=== PATIENT | male | born 1995 | race Two or more races ===

== ENCOUNTER → 2024-11-05 | Outpatient (CLI) | payer MEDICAID ==
[2024-11-05 12:59] LABS: Hematocrit 45.6 % (41.0-53.0); Hemoglobin 15.5 g/dL (13.5-17.5); Mean Corpuscular Hemoglobin 30.6 pg (28.0-32.0); Mean Corpuscular Volume 90.2 fL (80.0-100.0); Nucleated Red Blood Cells % 0.0 %
[2024-11-05 13:12] LABS: Alanine Aminotransferase 28 U/L (7-40); Albumin 4.7 g/dL (3.2-4.8); Anion Gap 7 (5-15); BUN/Creatinine Ratio 11.1 (10.0-20.0); Bilirubin, Total 0.5 mg/dL (0.2-1.0); Blood Urea Nitrogen 10 mg/dL (9-23); Carbon Dioxide 30 mmol/L (20-31); Chloride 104 mmol/L (98-107); Cholesterol 187 mg/dL (< 200); Glucose 91 mg/dL (74-106); Potassium 4.5 mmol/L (3.5-5.1); Sodium 141 mmol/L (136-145); Total Protein 7.3 g/dL (5.7-8.2)
[2024-11-05 13:16] LABS: Alkaline Phosphatase 122 U/L (46-116); Calcium 10.6 mg/dL (8.7-10.4); HDL Cholesterol 35 mg/dL (40-59); Triglycerides 253 mg/dL (< 150)
== END | disposition home or self-care (01) ==
LOC: LAB 12:22
PROVIDERS: ATTEND Internal Medicine
DX: E78.5 Hyperlipidemia, unspecified (principal); E55.9 Vitamin D deficiency, unspecified; Z13.1 Encounter for screening for diabetes mellitus
CPT/HCPCS: 36415; 80053; 80061; 82043; 82306; 83036; 84439; 84443; 85025

== ENCOUNTER 2024-12-30 10:16 | Outpatient (CLI) | payer MEDICAID ==
[2024-12-30 11:03] LABS: Hematocrit 43.7 % (41.0-53.0); Hemoglobin 15.3 g/dL (13.5-17.5); Mean Corpuscular Hemoglobin 31.0 pg (28.0-32.0); Mean Corpuscular Volume 88.8 fL (80.0-100.0); Nucleated Red Blood Cells % 0.1 %
== END 2024-12-30 17:00 | disposition home or self-care (01) ==
LOC: LAB 10:16
PROVIDERS: ATTEND Internal Medicine
DX: B82.9 Intestinal parasitism, unspecified (principal); K59.09 Other constipation
CPT/HCPCS: 36415; 85025; 87177

== ENCOUNTER 2025-01-09 08:01 | Outpatient (CLI) | payer MEDICAID | END 2025-01-09 17:00 | disposition home or self-care (01) | LOC: Rad HDHVI 08:01 | PROVIDERS: ATTEND Internal Medicine Cardiovascular Disease | DX: I51.7 Cardiomegaly (principal); R00.1 Bradycardia, unspecified; E78.5 Hyperlipidemia, unspecified | CPT/HCPCS: 93306 ==